=== PATIENT | female | born 1990 | race Caucasian/White ===

== ENCOUNTER 2016-12-31 10:50 | Outpatient (CLI) ==
[2016-04-11 10:46] VITALS: BMI 26.6
[2016-12-31 11:41] LABS: URINE PREGNANCY INTERNAL QC INTERNAL QC VALID
== END 2016-12-31 10:51 | disposition home or self-care (01) ==
LOC: LAB 10:50 → EDSEX 10:50 → LAB 10:51
PROVIDERS: ATTEND Family Medicine
DX: N91.2 Amenorrhea, unspecified (principal)
CPT/HCPCS: 81025

== ENCOUNTER 2017-08-01 16:34 | Emergency (ER) ==
[2017-08-01 16:40] VITALS: BP 135/83; TEMP 98.6; BMI 27.4
[2017-08-01] MEDS ORDERED: NORCO 5-325 PO STA (17:29)
--- NOTE | 2017-08-01 17:34 | ED.PDOC ---
General ED Provider: Dr. MANDEEP HARDWICK Chief Complaint: Multiple Trauma Stated Complaint: Pateint states she sustained trauma to the Right ankle when it got caught on the swing that fell. Part of the swing also hit her head. She did not loose conciousness. Has severe pain on head. Time Seen by Physician: 17:00 Mode of Arrival: Walk-In Information Source: Patient Exam Limitations: No limitations Primary Care Provider: ANTHONY ALDRIDGE Nursing and Triage Documentation Reviewed and Agree: Yes Trauma/Injury Complaint Exam - Head Injury Complaint/Exam Location of Pain: Reports: Scalp Mechanism of Injury: Reports: Trauma (from a falling metal fo swing ) Onset/Duration: Just prior to arrival Symptoms Are: Still present Initial Severity: Severe Current Severity: Moderate Character: Reports: Dull, Throbbing Aggravating: Reports: None Alleviating: Reports: None Associated Signs and Symptoms: Denies: Confusion, Memory loss, Seizure, Epistaxis, Dental malocclusion, Neck pain, Nausea, Vomiting Loss of Consciousness: None SDH Risk Factors: Present: None Cervical Spine Injury Risk Factors: Present: None Related Surgical History: Reports: None Head Injury Findings: Present: Normal findings Glascow Coma Scale (see protocol): 15 Focal Weakness: Present: None Focal Sensory Loss: Present: None Gait: Normal Gag Reflex Present: Yes Finger to Nose: Normal Rhomberg Test Positive: No Babinski Sign: Negative Right, Negative Left Nexus Low Risk Criteria: No post-midline CS tender, No evidence of intoxicat., No Altered LOC, No focal neuro deficit, No distracting injuries Head Picture: 1 - 1cm Laceration with bleeding Differential Diagnoses: Trauma Review of Systems - Review Of Systems Constitutional: Reports: No symptoms Eyes: Reports: No symptoms Ears, Nose, Mouth, Throat: Reports: No symptoms Respiratory: Reports: No symptoms Cardiac: Reports: No symptoms GI: Reports: No symptoms : Reports: No symptoms Musculoskeletal: Reports: Joint pain Skin: Reports: Bruising Neurological: Reports: Headache Endocrine: Reports: No symptoms Hematologic/Lymphatic: Reports: No symptoms All Other Systems: Reviewed and Negative Past Medical History - Past Medical History Previously Healthy: Yes Endocrine: Reports: None Cardiovascular: Reports: None Respiratory: Reports: None Hematological: Reports: None Gastrointestinal: Reports: None Genitourinary: Reports: None Neuro/Psych: Reports: None, Migraine Musculoskeletal: Reports: None Cancer: Reports: None Last Menstrual Period: IRREGULAR - Surgical History General Surgical History: Reports: None - Family History Family History: Reports: None - Social History Smoking Status: Never smoker Hx Substance Use: No Alcohol Screening: Occasionally - Immunizations Tetanus Shot up to Date: No Physical Exam - Physical Exam Appearance: Ill-appearing Ill-appearing: Mild Pain Distress: Severe Eyes: DAXA, EOMI, Conjunctiva clear ENT: Ears normal, Nose normal, Oropharynx normal Musculoskeletal: Limited ROM Skin: Warm, Dry Neurological: Sensation intact, Motor intact, Cranial nerves intact, Alert, Oriented Psychiatric: Anxious Interpretation - Radiology Interpretation Radiology Interpretation By: ED Physician Radiology Results: Negative Exam Interpreted: Other (right ankle x ray ) Procedures - Laceration/Wound Repair Scalp Wound Description: Linear Wound Length (cm): 1 Wound Explored: Clean Wound Irrigated: Yes Wound Prep: Saline Wound Repaired With: Blessing (2) Number of Blessing: 2 Sterile Dressing Applied?: No Splint Applied?: No Progress: Tolerated fairly Critical Care Note - Critical Care Note Total Time (mins): 0 Course - Course Orders, Labs, Meds: Orders Category Date Time Status Hydrocodone Bit/Acetaminophen [[place] 5-325] MEDS 08/01/17 17:29 Discontinued 1 tab PO ONCE STA ANKLE, RIGHT MIN 3 VIEWS Stat RADS 08/01/17 17:01 Taken Medications Discontinued Medications Generic Name Dose Route Start Last Admin Trade Name Romeo PRN Reason Stop Dose Admin Acetaminophen/Hydrocodone Bitart 1 tab 08/01/17 17:29 08/01/17 17:38 [place] 5-325 PO 08/01/17 17:30 1 tab ONCE STA Administration Vital Signs: Temp Pulse Resp BP Pulse Ox 08/01/17 16:35 98.6 F 98 H 18 135/83 97 Departure - Departure Time of Disposition: 17:39 Disposition: HOME SELF-CARE Discharge Problem: Scalp laceration Qualifiers: Encounter type: initial encounter Qualified Code(s): S01.01XA - Laceration without foreign body of scalp, initial encounter Ankle sprain Qualifiers: Encounter type: initial encounter Laterality: right Qualified Code(s): S93.401A - Sprain of unspecified ligament of right ankle, initial encounter Instructions: Ankle Sprain (ED) Condition: Stable Pt referred to PMD for follow-up: Yes Additional Instructions: Take medications as prescribed, Follow up with PCP in3-5 days return if worse Have blessing taken out in 7 days Prescriptions: Hydrocodone/Acetaminophen [[place] 5-325 Tablet] 1 tab PO Q6HR PRN #10 tablet PRN Reason: PAIN Ibuprofen [Motrin] 600 mg PO Q6H PRN #30 tablet PRN Reason: Analgesia Allergies/Adverse Reactions: Allergies No Known Allergies Allergy (Unverified 08/01/17 16:41) Home Medications: Ambulatory Orders Citalopram Hydrobromide [Celexa] 40 mg PO DAILY 04/11/16 Hydrocodone/Acetaminophen [[place] 5-325 Tablet] 1 tab PO Q6HR PRN #10 tablet 05/11 Ibuprofen [Motrin] 600 mg PO Q6H PRN #30 tablet 08/01/17 Magnesium Oxide [Magnesium] 500 mg PO BID 08/01/17 Norethindrone AC-Eth Estradiol [Loestrin 21 1-20 Tablet] 1 tab PO DAILY Disposition Discussed With: Patient, Family
--- NOTE | 2017-08-01 20:06 | DI ---
EXAM: Three views of the right ankle. History: Right ankle trauma. Findings: No acute fracture or dislocation. No abnormal calcifications or radiopaque foreign bodies . Joint spaces are preserved. Impression: No acute osseous abnormality
== END 2017-08-01 17:53 | disposition home or self-care (01) ==
LOC: ED 16:34
DX: S01.01XA Laceration without foreign body of scalp, initial encounter (principal); S93.401A Sprain of unspecified ligament of right ankle, initial encounter; W22.8XXA Striking against or struck by other objects, initial encounter
CPT/HCPCS: 99283